=== PATIENT | male | born 1950 | race Caucasian/White ===

== ENCOUNTER → 2016-10-22 | Outpatient (CLI) | payer BC ==
[~2016-10-22] MED LIST: AMOXICILLIN 50500 MG PO; ASPIRIN E.C. 8181 MG PO; BIAXIN 500MG T500 MG PO; BRILINTA90 MG PO; CHANTIX0.5 MG PO; FOLIC ACID1 MG PO; LOPRESSOR 225 MG/TAB PO; NIASPAN1000 MG PO; PRIL40 PO; ZESTRIL2.5 MG PO; ZETIA 10MG TAB10 MG PO; ZETIA10 MG PO
== END ==
LOC: COL.RAD 13:07
DX: E04.1 Nontoxic single thyroid nodule (principal)

== ENCOUNTER 2017-12-23 06:17 | Day surgery (SDC) | payer BC ==
[~2017-12-23] VITALS: Ht 188 cm; Wt 112.5 kg
[~2017-12-23 06:17] MED LIST changes: +FOLIC ACID 11 MG/TA1 PO; -FOLIC ACID1 MG PO; -PRIL40 PO; +PRILOTC PO; -ZETIA10 MG PO
[2017-12-23] MEDS ORDERED: LOPRESSOR 225 MG/TAB PO (06:42)
[2017-12-23 06:52] VITALS: BP 117/82; PULSE 71; TEMP 98.2
[2017-12-23 08:11] VITALS: BP 101/70; PULSE 66; TEMP 97.6
[2017-12-23 08:15] VITALS: BP 87/70; PULSE 70
[2017-12-23 08:30] VITALS: BP 92/65; PULSE 60
== END 2017-12-23 08:50 | disposition home or self-care (01) ==
LOC: SDCO 06:17
DX: Z12.11 Encounter for screening for malignant neoplasm of colon (principal); Z80.0 Family history of malignant neoplasm of digestive organs; D12.2 Benign neoplasm of ascending colon; D12.3 Benign neoplasm of transverse colon; D12.8 Benign neoplasm of rectum; K57.30 Diverticulosis of large intestine without perforation or abscess without bleeding; I25.2 Old myocardial infarction; I10 Essential (primary) hypertension
CPT/HCPCS: J2250; J3010; J7030

== ENCOUNTER → 2018-03-10 | Outpatient (CLI) | payer BC | LOC: COL.RAD 03-07 09:45 | DX: E04.2 Nontoxic multinodular goiter (principal) ==

== ENCOUNTER → 2022-09-09 | Outpatient (CLI) | payer BC | LOC: COL.RAD 09-03 07:30 | DX: Z13.6 Encounter for screening for cardiovascular disorders (principal) ==

== ENCOUNTER → 2023-01-12 | Outpatient (CLI) | payer BC | LOC: COL.RAD 13:20 | DX: Z12.2 Encounter for screening for malignant neoplasm of respiratory organs (principal); R91.8 Other nonspecific abnormal finding of lung field; Z87.891 Personal history of nicotine dependence ==

== ENCOUNTER 2023-08-23 08:50 | Emergency (ER) | payer BC ==
[~2023-08-23] VITALS: Ht 188 cm; Wt 113.6 kg
[2023-08-23 08:55] VITALS: TEMP 97.9
[2023-08-23 10:22] VITALS: BP 115/83; PULSE 77
== END 2023-08-23 10:22 | disposition home or self-care (01) ==
LOC: COL.ER 08:50
DX: R04.0 Epistaxis (principal); I48.91 Unspecified atrial fibrillation; Z79.01 Long term (current) use of anticoagulants